=== PATIENT | female | born 1955 | race Caucasian/White ===

== ENCOUNTER 2018-05-02 11:29 | Emergency (ER) | payer BC ==
--- NOTE | 2018-05-02 11:46 | EDM.PDOC ---
ED HPI GENERAL MEDICAL PROBLEM - General Stated Complaint: WEAK Time Seen by Provider: 05/02/18 11:29 Source of Information: Reports: Patient, Family History Limitations: Reports: Physical Impairment - History of Present Illness INITIAL COMMENTS - FREE TEXT/NARRATIVE: 62 y.o.w.f with DM with its complications, came to the ed with her son due to left thigh pain and left foot pain. Pt had a stent placed at he left femoral artery and her left left big toe amputated on Feb 08 2018 and had. PT is very thirsty. Glc was 247. No V/D no SOB, No CP. Pt did not take her BP meds today. BP 75/56 RR 18 Pulse ox 100% on RA Temp 36.8 Pulse 103 Onset: Unknown/Unsure Onset Date: 05/01/18 Onset Time: 09:00 Duration: Hour(s):, Day(s): Location: Reports: Lower Extremity, Left Quality: Reports: Ache, Burning Severity: Moderate Improves with: Reports: Rest Worsens with: Reports: Movement Context: Reports: Other (sentplacement left fem artery on Feb 08 2018) Associated Symptoms: Reports: Weakness Generalized Pain Score (Numeric/FACES): 5 - Related Data Allergies Allergy/AdvReac Type Severity Reaction Status Date / Time Iodinated Contrast- Oral and Allergy Unknown Intolerance Verified 05/02/18 11:36 IV Dye amoxicillin trihydrate Allergy Facial Verified 05/02/18 11:36 [From Augmentin] Swelling atorvastatin [From Lipitor] Allergy Muscle Verified 05/02/18 11:36 Aches potassium clavulanate Allergy Facial Verified 05/02/18 11:36 [From Augmentin] Swelling FEATHERS Allergy Unknown UNKNOWN Uncoded 12/11/14 17:40 fruits Allergy Unknown Indigestion Uncoded 12/11/14 16:16 Home Meds: Home Meds Gemfibrozil 600 mg PO BID 02/07/18 [History] Valsartan 80 mg PO DAILY 02/07/18 [History] glipiZIDE [Glipizide ER] 5 mg PO DAILY@12 02/07/18 [History] buPROPion HCl [Wellbutrin Xl] 300 mg PO DAILY 02/08/18 [History] Clopidogrel [Plavix] 75 mg PO DAILY 05/02/18 [History] metFORMIN [Glucophage] 1,000 mg PO BIDMEALS 05/02/18 [History] Past Medical History Other HEENT History: MISSING TOOTH Cardiovascular History: Reports: Heart Murmur, High Cholesterol, Hypertension Other Cardiovascular History: Cleaned out carotid artery x2 in 2018. Genitourinary History: Reports: None HOT OILER History: Reports: , Spontaneous Musculoskeletal History: Reports: Fracture Other Musculoskeletal History: L ft fx Neurological History: Reports: CVA, Neuropathy, Diabetic, Neuropathy, Peripheral Other Neuro History: HISTORY OF STROKE 6 YEARS AGO, bilat neuropathy Endocrine/Metabolic History: Reports: Diabetes, Type II Other Endocrine/Metabolic History: diet controlled diabetic Hematologic History: Reports: Blood Transfusion(s) - Infectious Disease History Infectious Disease History: Reports: Chicken Pox, Measles, Mumps - Past Surgical History HEENT Surgical History: Reports: Adenoidectomy, Oral Surgery, Polypectomy, Tonsillectomy GI Surgical History: Reports: Cholecystectomy, Colonoscopy, EGD, Polypectomy Female Surgical History: Reports: Section, D&C, Hysterectomy Musculoskeletal Surgical History: Reports: ORIF Other Musculoskeletal Surgeries/Procedures:: LEFT FOOT SURGERY x 4 Social & Family History - Family History Family Medical History: Noncontributory - Caffeine Use Caffeine Use: Reports: Coffee, Soda, Tea Other Caffeine Use: 1-2 cups/day ED ROS GENERAL - Review of Systems Review Of Systems: See Below Constitutional: Reports: Weakness HEENT: Reports: No Symptoms Respiratory: Reports: No Symptoms Cardiovascular: Reports: Orthopnea Endocrine: Reports: No Symptoms GI/Abdominal: Reports: Nausea, Vomiting : Reports: No Symptoms Musculoskeletal: Reports: Leg Pain (left leg) Skin: Reports: Pallor Neurological: Reports: No Symptoms Psychiatric: Reports: No Symptoms Hematologic/Lymphatic: Reports: No Symptoms Immunologic: Reports: No Symptoms ED EXAM, GENERAL - Physical Exam Exam: See Below Exam Limited By: Physical Impairment General Appearance: Alert, Moderate Distress, Thin Eye Exam: Bilateral Eye: Normal Inspection Ears: Normal External Exam Ear Exam: Bilateral Ear: Auricle Normal Nose: Normal Inspection, Normal Mucosa Throat/Mouth: Normal Lips, Normal Voice Head: Atraumatic Neck: Normal Inspection, Supple, Non-Tender, Full Range of Motion Respiratory/Chest: No Respiratory Distress, Lungs Clear, Normal Breath Sounds, No Accessory Muscle Use, Chest Non-Tender Cardiovascular: Normal Peripheral Pulses, Regular Rate, Rhythm Peripheral Pulses: 0: Femoral (L) GI/Abdominal: Normal Bowel Sounds, Soft, Non-Tender, No Organomegaly (Female) Exam: Deferred Rectal (Female) Exam: Deferred Back Exam: Normal Inspection, Full Range of Motion Extremities: Leg Pain, Other (no pulse palpated left femoral artery) Neurological: Alert, Oriented, CN II-XII Intact Psychiatric: Normal Affect Skin Exam: Warm, Dry, Wound/Incision (S/P amputation left big toe 02/08/2018) Lymphatic: No Adenopathy EKG INTERPRETATION EKG Date: 05/02/18 Time: 15:10 Rhythm: NSR Rate (Beats/Min): 100 [place]de: Normal P-Wave: Present QRS: Normal ST-T: Normal QT: Normal Comparison: NA - No Prior EKG Course - Vital Signs Text/Narrative:: 62 y.o.w.f with DM with its complications, came to the ed with her son due to left thigh pain and left foot pain. Pt had a stent placed at he left femoral artery and her left left big toe amputated on Feb 28 2018 and had. PT is very thirsty. Glc was 247. No V/D no SOB, No CP. Pt did not take her BP meds today. BP 75/56 RR 18 Pulse ox 100% on RA Temp 36.8 Pulse 103 PE: Pale weak appearing 62 y.o.w.f with left leg pain. Labs: WBC 5.8 HGB 9.6 HCT 28.4 UA: Pos for UTI and Hematuria Lactic acid 0.3 GFR 25 Na 125 Imaging: U/S: No DVT. No blood flow in left femoral artery. Impression: Hypotension, UTI, Dehydration, Hyponatremia, no pulse left femoral artery detected. DM with complications. S/P Left Toes amputation. H/O HTN, DM with Hyperglycemia. Tx: NS, Zofran, Levofloxacin, Insulin 1.51 pm: Consultation: , AP[facility], [facility]: Accepted the pt for further care and orders. Reexam: BP on transfer Plans: transfer to [facility]. Last Recorded V/S: Last Vital Signs Temp 36.8 C 05/02/18 16:17 Pulse 80 05/02/18 16:17 Resp 18 05/02/18 16:00 BP 97/65 05/02/18 16:47 Pulse Ox 98 05/02/18 16:17 - Orders/Labs/Meds Orders: Active Orders 24 hr Category Date Time Status Accu Check [Blood Glucose Check, Bedside] [RC] ONETIME Care 05/02/18 16:35 Active EKG Documentation Completion [RC] ASDIRECTED Care 05/02/18 14:58 Active Orthostatic Vital Signs [RC] ASDIRECTED Care 05/02/18 14:50 Active Foot Comp Min 3V Lt [CR] Stat Exams 05/02/18 12:03 Taken VL Duplex Upr Ext Veins Ltd Lt [US] Stat Exams 05/02/18 11:57 Taken EKG 12 Lead [EK] Routine Ther 05/02/18 14:58 Ordered Labs: Laboratory Tests 05/02/18 05/02/18 05/02/18 Range/Units 13:25 13:25 13:25 WBC 5.5 (4.5-12.0) X10-3/uL RBC 3.62 (3.23-5.20) x10(6)uL Hgb 9.6 L (11.5-15.5) g/dL Hct 28.5 L (30.0-51.3) % MCV 78.7 L (80-96) fL MCH 26.7 L (27.7-33.6) pg MCHC 33.9 (32.2-35.4) g/dL RDW 15.0 (11.5-15.5) % Plt Count 171 (125-369) X10(3)uL MPV 8.3 (7.4-10.4) fL Add Manual Diff Yes Neutrophils % (Manual) 71 (46-82) % Band Neutrophils % 4 (0-6) % Lymphocytes % (Manual) 14 (13-37) % Monocytes % (Manual) 10 (4-12) % Eosinophils % (Manual) 1 (0-5) % Rouleaux Moderate Sodium 125 L (135-145) mmol/L Potassium 4.2 (3.5-5.3) mmol/L Chloride 90 L (100-110) mmol/L Carbon Dioxide 19 L (21-32) mmol/L BUN 86 H D (7-18) mg/dL Creatinine 2.0 H* (0.55-1.02) mg/dL Est Cr Clr Drug Dosing 28.72 mL/min Estimated GFR (MDRD) 25 L (>60) BUN/Creatinine Ratio 43.0 H (9-20) Glucose 247 H (80-116) mg/dL POC Glucose (80-116) mg/dL Lactic Acid < 0.3 L (0.4-2.2) mmol/L Calcium 9.9 (8.6-10.2) mg/dL Creatine Kinase (60-160) IU/L Troponin I (<0.017-0.056) ng/mL Urine Color (YELLOW) Urine Appearance (CLEAR) Urine pH (5.0-6.5) Ur Specific Hammond (1.010-1.025) Urine Protein (NEGATIVE) mg/dL Urine Glucose (UA) (NEGATIVE) mg/dL Urine Ketones (NEGATIVE) mg/dL Urine Occult Blood (NEGATIVE) Urine Nitrite (NEGATIVE) Urine Bilirubin (NEGATIVE) Urine Urobilinogen (NEGATIVE) mg/dL Ur Leukocyte Esterase (NEGATIVE) Urine RBC (0) Urine WBC (0) Ur Squamous Epith Cells (NS,R,O) Urine Bacteria (NS) 05/02/18 05/02/18 05/02/18 Range/Units 13:25 14:00 15:03 WBC (4.5-12.0) X10-3/uL RBC (3.23-5.20) x10(6)uL Hgb (11.5-15.5) g/dL Hct (30.0-51.3) % MCV (80-96) fL MCH (27.7-33.6) pg MCHC (32.2-35.4) g/dL RDW (11.5-15.5) % Plt Count (125-369) X10(3)uL MPV (7.4-10.4) fL Add Manual Diff Neutrophils % (Manual) (46-82) % Band Neutrophils % (0-6) % Lymphocytes % (Manual) (13-37) % Monocytes % (Manual) (4-12) % Eosinophils % (Manual) (0-5) % Rouleaux Sodium (135-145) mmol/L Potassium (3.5-5.3) mmol/L Chloride (100-110) mmol/L Carbon Dioxide (21-32) mmol/L BUN (7-18) mg/dL Creatinine (0.55-1.02) mg/dL Est Cr Clr Drug Dosing mL/min Estimated GFR (MDRD) (>60) BUN/Creatinine Ratio (9-20) Glucose (80-116) mg/dL POC Glucose (80-116) mg/dL Lactic Acid (0.4-2.2) mmol/L Calcium (8.6-10.2) mg/dL Creatine Kinase 61 (60-160) IU/L Troponin I < 0.017 L (<0.017-0.056) ng/mL Urine Color Yellow (YELLOW) Urine Appearance Slightly cloudy (CLEAR) Urine pH 5.0 (5.0-6.5) Ur Specific Hammond 1.010 (1.010-1.025) Urine Protein Negative (NEGATIVE) mg/dL Urine Glucose (UA) Normal (NEGATIVE) mg/dL Urine Ketones Negative (NEGATIVE) mg/dL Urine Occult Blood Moderate H (NEGATIVE) Urine Nitrite Negative (NEGATIVE) Urine Bilirubin Small H (NEGATIVE) Urine Urobilinogen 1 H (NEGATIVE) mg/dL Ur Leukocyte Esterase Large H (NEGATIVE) Urine RBC 10-20 H (0) Urine WBC 30-40 H (0) Ur Squamous Epith Cells Many H (NS,R,O) Urine Bacteria Many H (NS) 05/02/18 Range/Units 16:36 WBC (4.5-12.0) X10-3/uL RBC (3.23-5.20) x10(6)uL Hgb (11.5-15.5) g/dL Hct (30.0-51.3) % MCV (80-96) fL MCH (27.7-33.6) pg MCHC (32.2-35.4) g/dL RDW (11.5-15.5) % Plt Count (125-369) X10(3)uL MPV (7.4-10.4) fL Add Manual Diff Neutrophils % (Manual) (46-82) % Band Neutrophils % (0-6) % Lymphocytes % (Manual) (13-37) % Monocytes % (Manual) (4-12) % Eosinophils % (Manual) (0-5) % Rouleaux Sodium (135-145) mmol/L Potassium (3.5-5.3) mmol/L Chloride (100-110) mmol/L Carbon Dioxide (21-32) mmol/L BUN (7-18) mg/dL Creatinine (0.55-1.02) mg/dL Est Cr Clr Drug Dosing mL/min Estimated GFR (MDRD) (>60) BUN/Creatinine Ratio (9-20) Glucose (80-116) mg/dL POC Glucose 202 H (80-116) mg/dL Lactic Acid (0.4-2.2) mmol/L Calcium (8.6-10.2) mg/dL Creatine Kinase (60-160) IU/L Troponin I (<0.017-0.056) ng/mL Urine Color (YELLOW) Urine Appearance (CLEAR) Urine pH (5.0-6.5) Ur Specific Hammond (1.010-1.025) Urine Protein (NEGATIVE) mg/dL Urine Glucose (UA) (NEGATIVE) mg/dL Urine Ketones (NEGATIVE) mg/dL Urine Occult Blood (NEGATIVE) Urine Nitrite (NEGATIVE) Urine Bilirubin (NEGATIVE) Urine Urobilinogen (NEGATIVE) mg/dL Ur Leukocyte Esterase (NEGATIVE) Urine RBC (0) Urine WBC (0) Ur Squamous Epith Cells (NS,R,O) Urine Bacteria (NS) Meds: Medications Discontinued Medications Generic Name Dose Route Start Last Admin Trade Name Freq PRN Reason Stop Dose Admin Sodium Chloride 1,000 mls @ 999 mls/hr 05/02/18 11:58 05/02/18 13:35 Normal Saline IV 05/02/18 12:58 999 mls/hr .BOLUS ONE Administration Sodium Chloride 1,000 mls @ 250 mls/hr 05/02/18 14:34 05/02/18 16:01 Normal Saline IV 05/02/18 18:33 250 mls/hr .BOLUS ONE Administration Insulin Human Regular 5 unit 05/02/18 16:31 05/02/18 16:40 Humulin R SUBCUT 05/02/18 16:32 5 unit BIDAC STA Administration Levofloxacin 500 mg 05/02/18 16:25 05/02/18 16:34 Levaquin PO 05/02/18 16:26 500 mg ONETIME ONE Administration Ondansetron HCl 4 mg 05/02/18 11:58 05/02/18 13:39 Zofran IVPUSH 05/02/18 11:59 4 mg ONETIME ONE Administration Pantoprazole Sodium 40 mg 05/02/18 11:59 05/02/18 13:43 Protonix Iv IVPUSH 05/02/18 12:00 40 mg ONETIME ONE Administration Departure - Departure Time of Disposition: 16:00 Disposition: DC/Tfer to Acute Hospital 02 Condition: Fair Clinical Impression: Femoral artery occlusion, left - Discharge Information Referrals: Mickey Santiago MD [Primary Care Provider] - Forms: ED Department Discharge - My Orders Last 24 Hours: My Active Orders 05/02/18 11:57 VL Duplex Upr Ext Veins Ltd Lt [US] Stat 05/02/18 12:03 Foot Comp Min 3V Lt [CR] Stat 05/02/18 14:50 Orthostatic Vital Signs [RC] ASDIRECTED 05/02/18 14:58 EKG Documentation Completion [RC] ASDIRECTED EKG 12 Lead [EK] Routine 05/02/18 16:35 Accu Check [Blood Glucose Check, Bedside] [RC] ONETIME - Assessment/Plan Last 24 Hours: My Active Orders 05/02/18 11:57 VL Duplex Upr Ext Veins Ltd Lt [US] Stat 05/02/18 12:03 Foot Comp Min 3V Lt [CR] Stat 05/02/18 14:50 Orthostatic Vital Signs [RC] ASDIRECTED 05/02/18 14:58 EKG Documentation Completion [RC] ASDIRECTED EKG 12 Lead [EK] Routine 05/02/18 16:35 Accu Check [Blood Glucose Check, Bedside] [RC] ONETIME
[2018-05-02] MEDS ORDERED: Sodium Chloride 0.9% 1,000 ML IV ONE (11:58)
[2018-05-02] MEDS ORDERED: Ondansetron 4 MG/2 ML SDV IVPUSH ONE (11:58)
[2018-05-02] MEDS ORDERED: Pantoprazole 40 MG Vial IVPUSH ONE (11:59)
[2018-05-02] MEDS: Sodium Chloride 0.9% 1,000 ML IV ONE ×2 (14:36→16:01)
[2018-05-02] MEDS ORDERED: Levofloxacin 500 MG Tab PO ONE (16:25)
[2018-05-02] MEDS ORDERED: Insulin Regular, Human 100 Units/ML 3 ML Vial SUBCUT STA (16:31)
[2018-05-02 16:48] VITALS: BP 97/65
== END 2018-05-02 16:55 ==
LOC: FB.ED 11:29
DX: I70.202 Unspecified atherosclerosis of native arteries of extremities, left leg (principal); I95.9 Hypotension, unspecified; N39.0 Urinary tract infection, site not specified; E86.0 Dehydration; E87.1 Hypo-osmolality and hyponatremia; I10 Essential (primary) hypertension; E11.40 Type 2 diabetes mellitus with diabetic neuropathy, unspecified; Z91.041 Radiographic dye allergy status; Z88.1 Allergy status to other antibiotic agents; Z79.899 Other long term (current) drug therapy; Z88.8 Allergy status to other drugs, medicaments and biological substances
CPT/HCPCS: 36415; 73630; 80048; 81001; 82550; 82962; 83605; 84484; 85025; 93005; 93971; 96361; 96372; 96374; 96375; 99285; A9270; C9113; J1815; J2405; J7030

== ENCOUNTER 2020-01-12 09:34 | Day surgery (SDC) | payer BC, OTHER ==
[~2020-01-12 09:34] MED LIST: Lactated Ringers 1,000 ML IV SCH; Sodium Chloride 0.9% 10 ML Syringe FLUSH PRN
[2020-01-12] MEDS ORDERED: Propofol 200 MG/20 ML SDV IV ONE (09:35)
--- NOTE | 2020-01-12 10:53 | PCM.OPNOTE ---
- General Post-Op/Procedure Note Date of Surgery/Procedure: 01/12/20 Operative Procedure(s): c scope Findings: occasional diverticuli of colon Pre Op Diagnosis: personal history of colon polyps Post-Op Diagnosis: diverticulosis Anesthesia Technique: EARLE Primary Surgeon: Ben Sanchez Anesthesia Provider: Jose Luis Saul Pathology: none Condition: Good Free Text/Narrative:: see dictation [id number]
[2020-01-12 11:58] VITALS: BP 154/68; PULSE 74
--- NOTE | 2020-01-12 12:54 | OR ---
DATE OF OPERATION: 01/12/2020 SURGEON: Ben Sanchez MD PROCEDURE PERFORMED: Colonoscopy. PREOPERATIVE DIAGNOSIS: Personal history of colon polyps. POSTOPERATIVE DIAGNOSIS: Diverticulosis of the sigmoid colon. INDICATIONS FOR PROCEDURE: This is a 64-year-old white female with a known history of colon polyps, presents for routine followup exam. She was offered and accepted same. DESCRIPTION OF OPERATION: After an excellent IV sedation was administered, digital rectal exam was performed. No marked abnormality was noted. Flexible colonoscope was inserted and advanced without difficulty to the patient's cecum. The prep was excellent. The following findings were noted. Ascending colon, unremarkable. Transverse colon, unremarkable. Descending colon, unremarkable. Sigmoid, occasional diverticula. Rectum and anus, unremarkable. The patient tolerated the procedure well. Taken to recovery. RECOMMENDATIONS: Repeat colonoscopy in 10 years. /[id number] /[id number]
== END 2020-01-12 11:44 | disposition home or self-care (01) ==
LOC: FB.SDS 09:34
PROVIDERS: ATTEND Surgery
DX: Z12.11 Encounter for screening for malignant neoplasm of colon (principal); K57.30 Diverticulosis of large intestine without perforation or abscess without bleeding; I10 Essential (primary) hypertension; E11.9 Type 2 diabetes mellitus without complications; Z86.010 Personal history of colon polyps; Z79.84 Long term (current) use of oral hypoglycemic drugs; Z79.899 Other long term (current) drug therapy; Z88.1 Allergy status to other antibiotic agents; Z91.041 Radiographic dye allergy status; Z88.8 Allergy status to other drugs, medicaments and biological substances; Z98.890 Other specified postprocedural states
CPT/HCPCS: 00812-QZ; J2704; J7120